=== PATIENT | male | born 1995 ===

== ENCOUNTER 2018-04-19 10:39 | Emergency (ER) | payer OTHER ==
[2018-04-19 10:59] VITALS: BMI 21.5
[2018-04-19 11:02] VITALS: RESP 18; TEMP 98.4
--- NOTE | 2018-04-19 12:14 | C.PDOC ---
History Of Present Illness 23 y/o male presents to ED with c/o rash to penis shaft for 26 days. Patient states he is sexually active but reports using condoms as protection, currently denies penile discharge, penile pain, testicular pain or lesions. No other complaints at this time. Time Seen by Provider: 04/19/18 11:44 Chief Complaint (Nursing): Abnormal Skin Integrity History Per: Patient History/Exam Limitations: no limitations Onset/Duration Of Symptoms: Days Current Symptoms Are (Timing): Still Present Past Medical History Reviewed: Historical Data, Nursing Documentation, Vital Signs Vital Signs: Last Vital Signs Temp 98.4 F 04/19/18 10:59 Pulse 67 04/19/18 12:36 Resp 18 04/19/18 12:36 BP 127/82 04/19/18 12:36 Pulse Ox 98 04/19/18 12:36 - Medical History PMH: No Chronic Diseases Surgical History: No Surg Hx Family History: States: No Known Family Hx - Social History Hx Alcohol Use: Yes Hx Substance Use: No - Immunization History Hx Tetanus Toxoid Vaccination: No Hx Influenza Vaccination: No Hx Pneumococcal Vaccination: No Review Of Systems Constitutional: Negative for: Fever, Chills Genitourinary: Negative for: Penile Discharge, Penile Pain Skin: Positive for: Rash Physical Exam - Physical Exam Appears: Non-toxic, No Acute Distress Skin: Warm, Dry, Rash (superficial abrasion to the dorsal aspect of penile shaft , small follicle non tender to scrotum base) Head: Atraumatic, Normacephalic Eye(s): bilateral: Normal Inspection Oral Mucosa: Moist Neck: Supple Male Genital: No Testicular Tenderness, No Testicular Swelling, No Scrotal Swelling Neurological/Psych: Oriented x3, Normal Speech, Normal Cognition ED Course And Treatment O2 Sat by Pulse Oximetry: 100 (RA) Pulse Ox Interpretation: Normal Progress Note: Bacitracin given and patient discharged with instructed follow up to STD clinic. Disposition - Disposition Referrals: [facility] [Outside] Disposition: HOME/ ROUTINE Disposition Time: 12:11 Condition: STABLE Additional Instructions: Please follow up with PMD / STD clinic Apply cream as directed Return to ER if worse Prescriptions: Bacitracin Ointment [Bacitracin] 30 gm TOP BID #1 tube Forms: [facility] (Vietnamese), Gen Discharge Inst Malay Print Language: POLISH - Clinical Impression Clinical Impression: Penile irritation - PA / WHITE SOURER / Resident Statement /DO has reviewed & agrees with the documentation as recorded. - Scribe Statement The provider has reviewed the documentation as recorded by the Rickyibramona Salazar All medical record entries made by the Sacha were at my direction and personally dictated by me. I have reviewed the chart and agree that the record accurately reflects my personal performance of the history, physical exam, medical decision making, and the department course for this patient. I have also personally directed, reviewed, and agree with the discharge instructions and disposition.
[2018-04-19 12:37] VITALS: BP 127/82; PULSE 67
[2018-04-19 13:29] VITALS: O2SAT 100
== END 2018-04-19 13:14 | disposition home or self-care (01) ==
LOC: C.ER 10:39
DX: N48.89 Other specified disorders of penis (principal)